=== PATIENT | female | born 1990 | race Caucasian/White ===

== ENCOUNTER → 2017-07-29 | Outpatient (CLI) | payer OTHER | LOC: RAD 09:40 | PROVIDERS: ATTEND Internal Medicine Hematology & Oncology | DX: R76.12 Nonspecific reaction to cell mediated immunity measurement of gamma interferon antigen response without active tuberculosis (principal) ==

== ENCOUNTER → 2017-12-14 | Outpatient (CLI) | payer OTHER | END | disposition home or self-care (01) | LOC: CFH 15:56 | PROVIDERS: ATTEND Orthopaedic Surgery | DX: S83.412A Sprain of medial collateral ligament of left knee, initial encounter (principal); X58.XXXA Exposure to other specified factors, initial encounter; Y93.89 Activity, other specified; Y92.89 Other specified places as the place of occurrence of the external cause; Y99.8 Other external cause status ==

== ENCOUNTER 2018-04-05 16:08 | Emergency (ER) | payer OTHER ==
[~2018-04-05] VITALS: Ht 160 cm; Wt 96.0 kg
[2018-04-05 16:10] VITALS: BP 133/85
[2018-04-05 17:15] LABS: BASOPHILS # (AUTO) 0.04 x10^3/uL (0-0.1); BASOPHILS % (AUTO) 0 % (0-1); EOSINOPHILS # (AUTO) 0.37 x10^3/uL (0-0.4); EOSINOPHILS % (AUTO) 3 % (1-7); LYMPHOCYTES # (AUTO) 2.22 x10^3/uL (1-3.4); LYMPHOCYTES % (AUTO) 19 % (22-44); MD NO; MEAN CORPUSCULAR HEMOGLOBIN 29.9 pg (27.0-34.8); MEAN CORPUSCULAR VOLUME 87.8 fL (80-100); MEAN PLATELET VOLUME 9.4 fL (7.4-10.4); MONOCYTES # (AUTO) 0.64 x10^3/uL (0.2-0.8); MONOCYTES % (AUTO) 5 % (2-9); NEUTROPHILS # (AUTO) 8.54 x10^3/uL (1.8-6.8); NEUTROPHILS % (AUTO) 72 % (42-75); PLATELET COUNT 249 x10^3/uL (130-400); RED BLOOD COUNT 4.66 x10^6/uL (3.82-5.3); RED CELL DISTRIBUTION WIDTH 13.8 % (9.6-15.2)
[2018-04-05 17:35] LABS: ALANINE AMINOTRANSFERASE 16 U/L (12-78); ALBUMIN 3.1 g/dL (3.4-5.0); ANION GAP 6 mmol/L (5-15); CHLORIDE 107 mmol/L (98-107); CREATININE 0.51 mg/dL (0.55-1.02)
[2018-04-05 17:37] LABS: ALKALINE PHOSPHATASE 68 U/L (45-117); BILIRUBIN,TOTAL 0.3 mg/dL (0.2-1.0)
[2018-04-05 18:28] LABS: CULTURE INDICATED? YES; MICROSCOPIC INDICATED
--- NOTE | 2018-04-05 19:17 | NUR ---
Patient/Caregiver given discharge instructions and they have confirmed that they understand the instructions. Patient ambulatory with steady gait.
== END 2018-04-05 19:22 | disposition home or self-care (01) ==
LOC: ED 18:25
DX: O23.12 Infections of bladder in pregnancy, second trimester (principal); R55 Syncope and collapse; Z3A.14 14 weeks gestation of pregnancy
CPT/HCPCS: 36415; 80053; 81001; 85025; 87086; 93005; 99284

== ENCOUNTER 2018-05-09 13:41 | Emergency (ER) | payer OTHER ==
[~2018-05-09] VITALS: Ht 162.6 cm; Wt 92.5 kg
[2018-05-09 13:43] VITALS: BP 157/102
--- NOTE | 2018-05-09 13:51 | NUR ---
NOTIFIED L&D, SHONDA RN. PT W/ HX OF PRE-ECCLAMPSIA. CURRENTLY 19WKS . L&D WILL BE DOWN TO MONITOR FHT
[2018-05-09 14:49] LABS: RAPID INFLUENZA A Negative (Negative); RAPID INFLUENZA B Negative (Negative)
== END 2018-05-09 16:13 | disposition home or self-care (01) ==
LOC: ED 14:01
DX: O21.9 Vomiting of pregnancy, unspecified (principal); B34.9 Viral infection, unspecified; M79.10 Myalgia, unspecified site; Z3A.19 19 weeks gestation of pregnancy
CPT/HCPCS: 71046; 87400; 99284

== ENCOUNTER → 2018-07-22 | Outpatient (CLI) | payer OTHER | END | disposition home or self-care (01) | LOC: LAB 09:40 | PROVIDERS: ATTEND Obstetrics & Gynecology | DX: O99.810 Abnormal glucose complicating pregnancy (principal); Z3A.28 28 weeks gestation of pregnancy | CPT/HCPCS: 36415; 82951 ==

== ENCOUNTER 2020-10-17 18:29 | Outpatient (CLI) | payer SELFPAY ==
[2020-10-17 20:05] LABS: MICROSCOPIC INDICATED
== END 2020-10-17 22:43 | disposition home or self-care (01) ==
LOC: ROC 18:29 → LDOP 22:43
PROVIDERS: ATTEND Obstetrics & Gynecology
DX: O26.893 Other specified pregnancy related conditions, third trimester (principal); M54.9 Dorsalgia, unspecified; E86.0 Dehydration; Z3A.30 30 weeks gestation of pregnancy
CPT/HCPCS: 59025; 76770; 81001; 87086

== ENCOUNTER 2020-11-29 11:34 | Outpatient (CLI) | payer OTHER | END 2020-11-29 23:59 | disposition home or self-care (01) | LOC: STAR 11:34 | PROVIDERS: ATTEND Obstetrics & Gynecology | DX: Z20.822 Contact with and (suspected) exposure to COVID-19 (principal) | CPT/HCPCS: U0003; U0005 ==

== ENCOUNTER 2020-12-02 18:22 | Inpatient (IN) | payer OTHER ==
[~2020-12-02] VITALS: Ht 160 cm; Wt 116.4 kg
[2020-12-02] MEDS ORDERED: METOCLOPRAMIDE 5 MG/ML, 2ML IV ONE (19:00)
[2020-12-02] MEDS ORDERED: PLEASE ENTER HEIGHT AND WEIGHT MC SCH (19:00)
[2020-12-02] MEDS ORDERED: SODIUM CITRATE/CITRIC ACID 30 ML UDC PO ONE (19:00)
[2020-12-02] MEDS ORDERED: LACTATED RINGERS 1,000 ML IVBOLUS ONE (19:00)
[2020-12-02 19:12] LABS: BASOPHILS % (AUTO) 0 % (0-1); EOSINOPHILS % (AUTO) 3 % (1-7); LYMPHOCYTES % (AUTO) 23 % (22-44); MEAN CORPUSCULAR HEMOGLOBIN 28.3 pg (27.0-34.8); MEAN CORPUSCULAR HGB CONC 33.6 g/dL (32.4-35.8); MEAN PLATELET VOLUME 9.1 fL (7.4-10.4); MONOCYTES % (AUTO) 8 % (2-9); NEUTROPHILS % (AUTO) 67 % (42-75); PLATELET COUNT 239 x10^3/uL (130-400); RED CELL DISTRIBUTION WIDTH 15.4 % (9.6-15.2)
[2020-12-02 19:20] LABS: ALBUMIN 2.2 g/dL (3.4-5.0); ANION GAP 7 mmol/L (5-15); CALCIUM 8.5 mg/dL (8.5-10.1); CHLORIDE 109 mmol/L (98-107)
[2020-12-02 19:24] LABS: ALANINE AMINOTRANSFERASE 15 U/L (12-78); ALKALINE PHOSPHATASE 87 U/L (45-117); BILIRUBIN, DIRECT 0.1 mg/dL (0.1-0.2); BILIRUBIN,TOTAL 0.3 mg/dL (0.2-1.0); CREATININE 0.49 mg/dL (0.55-1.02); TOTAL PROTEIN 6.5 g/dL (6.4-8.2)
[2020-12-02] MEDS ORDERED: LABETALOL 5MG/ML, 20ML IV PRN (20:00)
[2020-12-02] MEDS ORDERED: PROMETHAZINE 25 MG/ML, 1ML IV PRN (20:00)
[2020-12-02] MEDS ORDERED: EPHEDRINE 50 MG/ML, 1ML IVPush PRN (20:00)
[2020-12-02] MEDS ORDERED: OXYcodone 5 MG/5 ML ORAL.SOL UDC PO PRN (20:00)
[2020-12-02] MEDS ORDERED: MEPERIDINE/PF 25MG/0.5ML IVPush PRN (20:00)
[2020-12-02] MEDS ORDERED: ALBUTEROL SULFATE 2.5 MG/3 ML NPPB PRN (20:00)
[2020-12-02] MEDS ORDERED: hydrALAzine 20 MG/ML, 1ML IV PRN (20:00)
[2020-12-02] MEDS ORDERED: FENTANYL PF 100 MCG/2ML IV PRN (20:00)
[2020-12-02] MEDS ORDERED: HYDROmorphone 2 MG/ML, 1ML IVPush PRN (20:00)
[2020-12-02] MEDS ORDERED: ONDANSETRON 2MG/ML, 2ML IVPush PRN (20:00)
[2020-12-02] MEDS ORDERED: METOPROLOL 1 MG/ML, 5ML IV PRN (20:00)
[2020-12-02] MEDS ORDERED: HYDROcodone/APAP 7.5-325MG/15ML UDC PO PRN (20:00)
[2020-12-02] MEDS ORDERED: OXYTOCIN 30U/ 0.9% NaCL 500ML 500 ML ONE (22:34)
[2020-12-02] MEDS ORDERED: PHENYLEPHRINE 10 MG/ML ONE (22:37)
[2020-12-02] MEDS ORDERED: ONDANSETRON 2MG/ML, 2ML ONE (22:37)
[2020-12-02] MEDS ORDERED: KETOROLAC 30 MG/1 ML ONE (22:37)
[2020-12-02] MEDS ORDERED: FENTANYL PF 100 MCG/2ML ONE (22:37)
[2020-12-02] MEDS ORDERED: CEFAZOLIN 1,000 MG ONE (22:37)
[2020-12-02] MEDS ORDERED: OXYTOCIN 10 UNITS/ML, 1ML ONE (22:37)
[2020-12-02] MEDS ORDERED: EPHEDRINE 50 MG/ML, 1ML ONE (22:37)
[2020-12-02] MEDS ORDERED: DEXAMETHASONE 4 MG/ML, 1ML ONE (22:37)
[2020-12-02] MEDS ORDERED: HYDROmorphone 2 MG/ML, 1ML ONE (23:56)
[2020-12-03] MEDS ORDERED: CARBOPROST TROMETHAMINE 250 MCG/ML, 1ML IM PRN (00:43)
[2020-12-03] MEDS ORDERED: SIMETHICONE 80 MG CHEW TAB PO PRN ×2 (01:00)
[2020-12-03] MEDS ORDERED: LACTATED RINGERS 1,000 ML IV SCH ×2 (01:00)
[2020-12-03] MEDS ORDERED: OXYTOCIN 30U/ 0.9% NaCL 500ML 500 ML IV SCH ×2 (01:00)
[2020-12-03] MEDS ORDERED: DOCUSATE 100 MG CAPSULE PO PRN (01:00)
[2020-12-03] MEDS: LACTATED RINGERS 1,000 ML IV SCH ×6 (01:30→21:12)
[2020-12-03] MEDS: OXYTOCIN 30U/ 0.9% NaCL 500ML 500 ML IV SCH ×3 (01:39→21:12)
[2020-12-03 02:30] VITALS: BP 119/75
[2020-12-03 07:35] VITALS: BP 125/81
[2020-12-03 07:59] LABS: BASOPHILS % (AUTO) 0 % (0-1); EOSINOPHILS % (AUTO) 0 % (1-7); LYMPHOCYTES % (AUTO) 12 % (22-44); MEAN CORPUSCULAR HEMOGLOBIN 28.3 pg (27.0-34.8); MEAN CORPUSCULAR HGB CONC 33.5 g/dL (32.4-35.8); MEAN PLATELET VOLUME 9.1 fL (7.4-10.4); MONOCYTES % (AUTO) 4 % (2-9); NEUTROPHILS % (AUTO) 84 % (42-75); PLATELET COUNT 177 x10^3/uL (130-400); RED BLOOD COUNT 4.07 x10^6/uL (3.82-5.3); RED CELL DISTRIBUTION WIDTH 15.9 % (9.6-15.2)
[2020-12-03] MEDS: PRENATAL VIT/IRON/FA 1 EACH TABLET PO SCH (08:01)
[2020-12-03] MEDS: KETOROLAC 30 MG/1 ML IVPush SCH ×3 (08:02→20:07)
[2020-12-03] MEDS: DOCUSATE 100 MG CAPSULE PO PRN ×2 (08:02→19:33)
[2020-12-03] MEDS: OXYcodone IR 5MG TABLET PO PRN ×4 (08:02→19:33)
[2020-12-03] MEDS ORDERED: PRENATAL VIT/IRON/FA 1 EACH TABLET PO SCH (09:00)
[2020-12-03 12:10] VITALS: BP 125/64
[2020-12-03 16:15] VITALS: BP 135/75
[2020-12-03 19:15] VITALS: BP 139/89
[2020-12-04] MEDS: OXYcodone IR 5MG TABLET PO PRN ×7 (00:02→22:27)
[2020-12-04] MEDS: LACTATED RINGERS 1,000 ML IV SCH ×2 (01:00→07:01)
[2020-12-04] MEDS: KETOROLAC 30 MG/1 ML IVPush SCH (02:37)
[2020-12-04] MEDS: OXYTOCIN 30U/ 0.9% NaCL 500ML 500 ML IV SCH (07:01)
[2020-12-04 09:00] VITALS: BP 103/70
[2020-12-04] MEDS: IBUPROFEN 600 MG TABLET PO PRN ×3 (09:07→21:57)
[2020-12-04] MEDS: PRENATAL VIT/IRON/FA 1 EACH TABLET PO SCH (09:07)
[2020-12-04] MEDS: DOCUSATE 100 MG CAPSULE PO PRN ×2 (09:07→21:58)
[2020-12-04 19:30] VITALS: BP 140/83
[2020-12-05] MEDS: OXYcodone IR 5MG TABLET PO PRN ×4 (02:44→23:42)
[2020-12-05] MEDS: IBUPROFEN 600 MG TABLET PO PRN ×4 (04:13→23:43)
[2020-12-05] MEDS: PRENATAL VIT/IRON/FA 1 EACH TABLET PO SCH (09:24)
[2020-12-05] MEDS: DOCUSATE 100 MG CAPSULE PO PRN (09:24)
[2020-12-05 09:25] VITALS: BP 123/83
[2020-12-05 20:00] VITALS: BP 145/90
[2020-12-06] MEDS: OXYcodone/APAP 5/325MG TABLET PO PRN ×3 (03:55→13:02)
[2020-12-06] MEDS ORDERED: OXYC-302 PO (06:41)
[2020-12-06 08:00] VITALS: BP 134/86
[2020-12-06] MEDS: PRENATAL VIT/IRON/FA 1 EACH TABLET PO SCH (08:40)
[2020-12-06] MEDS: IBUPROFEN 600 MG TABLET PO PRN ×2 (08:40→13:02)
[2020-12-06] MEDS: DOCUSATE 100 MG CAPSULE PO PRN (08:40)
== END 2020-12-06 13:43 | disposition home or self-care (01) | DRG 785 ==
LOC: LDOP 18:22 → LDIP 18:40 → 2NW 12-03 02:10
PROVIDERS: ADMIT Obstetrics & Gynecology; ATTEND Obstetrics & Gynecology
PROC: 10D00Z1 Extraction of Products of Conception, Low, Open Approach (ICD-10-PCS; principal; 2020-12-03)
PROC: 0UB70ZZ Excision of Bilateral Fallopian Tubes, Open Approach (ICD-10-PCS; 2020-12-03)
PROC: 0DNU0ZZ Release Omentum, Open Approach (ICD-10-PCS; 2020-12-03)
DX: O99.52 Diseases of the respiratory system complicating childbirth (principal); J45.909 Unspecified asthma, uncomplicated; O13.4 Gestational [pregnancy-induced] hypertension without significant proteinuria, complicating childbirth; O99.62 Diseases of the digestive system complicating childbirth; K66.0 Peritoneal adhesions (postprocedural) (postinfection); O14.04 Mild to moderate pre-eclampsia, complicating childbirth; O34.211 Maternal care for low transverse scar from previous cesarean delivery; F53.0 Postpartum depression; Z30.2 Encounter for sterilization; Z37.0 Single live birth; Z3A.37 37 weeks gestation of pregnancy; Z80.3 Family history of malignant neoplasm of breast; Z82.3 Family history of stroke; Z82.49 Family history of ischemic heart disease and other diseases of the circulatory system; Z83.3 Family history of diabetes mellitus
CPT/HCPCS: 36415; 80053; 82248; 84550; 85025; 86592; 86850; 86900; 88302; G0378; J0690; J1100; J1170; J1885; J2405; J3010; J2370; J2590; J2765; J7120